=== PATIENT | female | born 1950 | race Caucasian/White ===

== ENCOUNTER 2016-08-23 09:24 | Day surgery (SDC) | payer BC ==
--- NOTE | ~2016-08-23 | EGD ---
EGD REPORT [facility] [address] [address] NAME: HALLIE CASH : 46 STATUS : REG [facility]#: [id number] AGE: 66 ADM/REG DATE : 08/23/16 MR#: [id number] REPORT SERV DATE: 08/23/16 DICTATED BY: GADIEL CAT DATE: 08/23/16 REPORT STATUS : Draft TRANSCRIBED BY: [employer] DATE: 08/23/16 [facility] Patient Name: Hallie Cash Date of : 1950 Attending MD: GADIEL CAT MD Procedure Date No Time: 08/23/2016 Procedure: Upper GI endoscopy Indications: Iron deficiency anemia, Heartburn, Suspected esophageal reflux, Weight loss Referring MD: WHIT YORK MD Medicines: as per anesthesia Complications: No immediate complications. Procedure: Pre-Anesthesia Assessment: - ASA Grade Assessment: II - A patient with mild systemic disease. After obtaining informed consent, the endoscope was passed under direct vision. Throughout the procedure, the patient's blood pressure, pulse, and oxygen saturations were monitored continuously. The GIF [id number] was introduced through the mouth, and advanced to the third part of duodenum. The upper GI endoscopy was accomplished without difficulty. The patient tolerated the procedure. Findings: The examined esophagus was normal. A few sessile polyps were found in the gastric body. Biopsies were taken with a cold forceps for histology. The cardia and gastric fundus were normal on retroflexion. The examined duodenum was normal. Biopsies were taken with a cold forceps for histology. Impression: - Normal esophagus. - A few gastric polyps. Biopsied. - Normal examined duodenum. Biopsied. Recommendation: - Await pathology results. Procedure Code(s): --- Professional --- 15513, Esophagogastroduodenoscopy, flexible, transoral; with biopsy, single or multiple Diagnosis Code(s): --- Professional --- K31.7, Polyp of stomach and duodenum D50.9, Iron deficiency anemia, unspecified EGD REPORT [place] [address] [facility] [place] [address] NAME: HALLIE CASH : [birth year] [place]US [place] [facility] [place] [id number] AGE: 66 ADM/REG DATE : 08/23/16 MR#: [id number] REPORT SERV DATE: 08/23/16 DICTATED BY: GADIEL CAT. DATE: 08/23/16 REPORT STATUS : Draft TRANSCRIBED BY: [employer] DATE: 08/23/16 R12, Heartburn R63.4, Abnormal weight loss CPT copyright 2013 [employer]. All rights reserved. The codes documented in this report are preliminary and upon packager review may be revised to meet current compliance requirements. GADIEL CAT MD 08/23/2016 12:26 PM This report has been signed electronically. Number of Addenda: 0 Note Initiated On: 08/23/2016 12:00 PM Scope Withdrawal Time 0 hours 0 minutes [address] [place] [address] [place] [address]
[~2016-08-23 09:24] MED LIST: ASAB PO; BUSPAR15 M1 PO; CENESTIN0.625 MG OR; CRESTOR10 PO; ESTRACE1 MG PO; EZFE 200200 MG PO; LIPITOR10 PO; MIRAPEX250 PO; MOBIC7.5 PO; MULTIPLE VIT PO; MYRBETRIQ25 MG PO; MYRBETRIQ50 MG PO; NASACORTAQ NAS; NEXIUM40 PO; PRILO PO; VITAMIN D1000 UNI1 PO; ZYRTEC ALLGY10 MG PO; [UNRECOGNIZED DRUG - OTHER] PO
== END 2016-08-23 23:59 | disposition home or self-care (01) ==
LOC: DMU 09:24
PROVIDERS: Internal Medicine Gastroenterology
PROC: 0DB98ZX Excision of Duodenum, Via Natural or Artificial Opening Endoscopic, Diagnostic (ICD-10-PCS; 2016-08-23)
PROC: 0DB68ZX Excision of Stomach, Via Natural or Artificial Opening Endoscopic, Diagnostic (ICD-10-PCS; principal; 2016-08-23 11:00)
DX: K31.7 Polyp of stomach and duodenum (principal); K57.90 Diverticulosis of intestine, part unspecified, without perforation or abscess without bleeding; K21.9 Gastro-esophageal reflux disease without esophagitis; D50.9 Iron deficiency anemia, unspecified; E78.5 Hyperlipidemia, unspecified; G25.81 Restless legs syndrome; M19.90 Unspecified osteoarthritis, unspecified site; H91.91 Unspecified hearing loss, right ear; Z79.82 Long term (current) use of aspirin; Z79.899 Other long term (current) drug therapy; Z87.891 Personal history of nicotine dependence; Z90.89 Acquired absence of other organs; Z90.710 Acquired absence of both cervix and uterus; Z98.51 Tubal ligation status; Z98.890 Other specified postprocedural states
CPT/HCPCS: 88305